=== PATIENT | female | born 1965 | race Caucasian/White ===

== ENCOUNTER 2019-05-11 22:59 | Emergency (ER) | payer OTHER, MEDICARE ==
[2019-05-12 00:36] LABS: EOS # 0.1 (0.04-0.40); EOS % 1.4 % (1.0-5.0); HEMATOCRIT 37.4 % (37.0-47.0); HEMOGLOBIN 11.5 g/dL (12.5-16.0); MEAN CELL VOLUME 86 fl (78-100); MEAN CORPUSCULAR HEMOGLOBIN 27 pg (27-31); MEAN CORPUSCULAR HGB CONC 31 g/dL (33-37); MEAN PLATELET VOLUME 11.1 fl (7.4-10.4); MONO # 0.9 (0.20-0.80); NEU # 4.8 (1.40-6.50); PLATELET COUNT 252 K/mm3 (130-400); RED BLOOD COUNT 4.33 M/mm3 (4.10-5.30); RED CELL DISTRIBUTION WIDTH 13.9 % (11.5-14.5); WHITE BLOOD COUNT 8.8 K/mm3 (4.8-10.8)
[2019-05-12 00:47] LABS: PROTHROMBIN TIME 10.8 SECONDS (9.0-12.0)
[2019-05-12] MEDS ORDERED: ESCITALOPRAM20 MG PO (00:49)
[2019-05-12] MEDS ORDERED: LEVOTHYROXIN0.075 MG PO (00:49)
[2019-05-12] MEDS ORDERED: BUPROPION HCL200 M1 PO (00:50)
[2019-05-12] MEDS ORDERED: FENOFIBRATE MI134 MG PO (00:50)
[2019-05-12] MEDS ORDERED: MULTIVITAMIN1 SGL PO (00:52)
[2019-05-12 00:53] LABS: ALBUMIN 3.6 g/dL (3.5-5.0); CALCIUM 9.2 mg/dL (8.3-10.5); POTASSIUM 3.9 mmol/L (3.5-5.1); TOTAL PROTEIN 6.3 g/dL (6.4-8.3)
[2019-05-12] MEDS ORDERED: VIACTIV PO (00:53)
[2019-05-12] MEDS ORDERED: GOOD NEIGHBOR P1 T32 PO (00:53)
[2019-05-12 00:54] LABS: TOTAL BILIRUBIN 0.1 mg/dL (0.2-1.2)
[2019-05-12] MEDS ORDERED: B COMPLEX #11 TA1 PO (00:54)
[2019-05-12] MEDS ORDERED: FISH OIL1 IU PO (01:09)
[2019-05-12] MEDS ORDERED: PROBIOTIC1 EAC1 PO (01:09)
[2019-05-12] MEDS ORDERED: CRESTOR 10MG10 MG PO (01:10)
[2019-05-12] MEDS ORDERED: PROTONIX TR40 M1 PO (01:10)
[2019-05-12] MEDS ORDERED: MYRBETRIQ50 MG PO (01:10)
[2019-05-12] MEDS ORDERED: HYDROXYZINE HCL25 M1 PO (01:11)
[2019-05-12] MEDS ORDERED: LATUDA40 MG PO (01:11)
[2019-05-12] MEDS ORDERED: LISINOPRIL10 MG PO (01:12)
[2019-05-12] MEDS ORDERED: MAGNESIUM OXIDE PO (01:12)
[2019-05-12] MEDS ORDERED: FLOMAX0.4 MG PO (01:12)
[2019-05-12] MEDS ORDERED: MAGNESIUM OXIDE (01:12)
[2019-05-12] MEDS ORDERED: TRIAMCINOLONE AC0.13 TP (01:13)
[2019-05-12] MEDS ORDERED: LOMAIRA8 MG PO (01:13)
[2019-05-12] MEDS ORDERED: PHENERGAN 25 TA25 MG PO (01:14)
[2019-05-12] MEDS ORDERED: AJOVY225 MG/1.5 SQ (01:14)
[2019-05-12] MEDS ORDERED: METAXALONE800 M2 PO ×2 (01:15)
[2019-05-12] MEDS ORDERED: N-ACETYL-L-CYS600 MG PO (01:15)
[2019-05-12] MEDS ORDERED: ADVIL MIGRAINE200 MG PO (01:16)
[2019-05-12] MEDS ORDERED: BUTALBITAL, ACE1 TA1 PO (01:16)
[2019-05-12] MEDS ORDERED: KETOROLAC10 MG PO (01:16)
[2019-05-12] MEDS ORDERED: TYLENOL EXTRA500 M2 PO (01:17)
[2019-05-12 01:25] VITALS: BP 121/71
== END 2019-05-12 01:28 | disposition home or self-care (01) ==
LOC: ED 22:59
PROVIDERS: Physician Assistant
DX: E11.42 Type 2 diabetes mellitus with diabetic polyneuropathy (principal); K58.9 Irritable bowel syndrome, unspecified; I10 Essential (primary) hypertension; G43.909 Migraine, unspecified, not intractable, without status migrainosus; E03.9 Hypothyroidism, unspecified; F32.9 Major depressive disorder, single episode, unspecified; Z90.49 Acquired absence of other specified parts of digestive tract; Z98.84 Bariatric surgery status; Z88.1 Allergy status to other antibiotic agents
CPT/HCPCS: J1885

== ENCOUNTER 2019-06-06 21:12 | Emergency (ER) | payer OTHER, MEDICARE ==
[~2019-06-06 21:12] MED LIST: ADVIL MIGRAINE200 MG PO; AJOVY225 MG/1.5 SQ; B COMPLEX #11 TA1 PO; BUPROPION HCL200 M1 PO; BUTALBITAL, ACE1 TA1 PO; CRESTOR 10MG10 MG PO; ESCITALOPRAM20 MG PO; FENOFIBRATE MI134 MG PO; FISH OIL1 IU PO; FLOMAX0.4 MG PO; GOOD NEIGHBOR P1 T32 PO; HYDROXYZINE HCL25 M1 PO; KETOROLAC10 MG PO; LATUDA40 MG PO; LEVOTHYROXIN0.075 MG PO; LISINOPRIL10 MG PO; LOMAIRA8 MG PO; MAGNESIUM OXIDE; MAGNESIUM OXIDE PO; METAXALONE800 M2 PO; MULTIVITAMIN1 SGL PO; MYRBETRIQ50 MG PO; N-ACETYL-L-CYS600 MG PO; PHENERGAN 25 TA25 MG PO; PROBIOTIC1 EAC1 PO; PROTONIX TR40 M1 PO; TRIAMCINOLONE AC0.13 TP; TYLENOL EXTRA500 M2 PO; VIACTIV PO
[2019-06-06 21:39] LABS: EOS # 0.1 (0.04-0.40); EOS % 1.6 % (1.0-5.0); HEMATOCRIT 40.3 % (37.0-47.0); HEMOGLOBIN 12.5 g/dL (12.5-16.0); MEAN CELL VOLUME 85 fl (78-100); MEAN CORPUSCULAR HEMOGLOBIN 26 pg (27-31); MEAN CORPUSCULAR HGB CONC 31 g/dL (33-37); MEAN PLATELET VOLUME 11.1 fl (7.4-10.4); MONO # 0.6 (0.20-0.80); NEU # 4.3 (1.40-6.50); PLATELET COUNT 285 K/mm3 (130-400); RED BLOOD COUNT 4.73 M/mm3 (4.10-5.30); RED CELL DISTRIBUTION WIDTH 14.3 % (11.5-14.5); WHITE BLOOD COUNT 8.1 K/mm3 (4.8-10.8)
[2019-06-06 21:50] LABS: ALBUMIN 3.8 g/dL (3.5-5.0)
[2019-06-06 21:51] LABS: POTASSIUM 3.8 mmol/L (3.5-5.1); SODIUM 139 mmol/L (136-145)
[2019-06-06 21:52] LABS: CALCIUM 8.8 mg/dL (8.3-10.5)
[2019-06-06 21:53] LABS: GLUCOSE 81 mg/dL (65-105); TOTAL PROTEIN 6.6 g/dL (6.4-8.3)
[2019-06-06 21:54] LABS: CARBON DIOXIDE 24 mmol/L (22-29)
[2019-06-06 21:55] LABS: TOTAL BILIRUBIN 0.2 mg/dL (0.2-1.2)
[2019-06-06 21:58] LABS: AST-SGOT 18 U/L (5-34)
[2019-06-06 22:00] LABS: ALT/SGPT 23 U/L (0-55)
[2019-06-06 22:07] LABS: TROPONIN-I < 0.03 ng/mL (<0.030)
[2019-06-06 22:12] LABS: PARTIAL THROMBOPLASTIN TIME 22.9 SECONDS (21.0-32.0)
[2019-06-06 22:23] LABS: D-DIMER 0.51 mg/L FEU (0.15-0.50)
[2019-06-07 00:02] VITALS: BP 128/82
== END 2019-06-07 00:02 | disposition home or self-care (01) ==
LOC: ED 21:12
PROVIDERS: Nurse Practitioner
DX: R06.02 Shortness of breath (principal); R07.9 Chest pain, unspecified; E11.9 Type 2 diabetes mellitus without complications; I10 Essential (primary) hypertension; F32.9 Major depressive disorder, single episode, unspecified; E03.9 Hypothyroidism, unspecified; G43.909 Migraine, unspecified, not intractable, without status migrainosus; Z79.4 Long term (current) use of insulin; Z90.49 Acquired absence of other specified parts of digestive tract; Z98.84 Bariatric surgery status
CPT/HCPCS: Q9967

== ENCOUNTER 2019-06-30 19:34 | Emergency (ER) | payer OTHER, MEDICARE ==
[2019-06-30] MEDS ORDERED: SPIRONOLACTONE50 M1 PO (19:49)
[2019-06-30 21:38] VITALS: BP 125/79
== END 2019-06-30 21:38 | disposition home or self-care (01) ==
LOC: ED 19:34
DX: M94.0 Chondrocostal junction syndrome [Tietze] (principal); F32.9 Major depressive disorder, single episode, unspecified; K58.9 Irritable bowel syndrome, unspecified; E03.9 Hypothyroidism, unspecified; G43.909 Migraine, unspecified, not intractable, without status migrainosus; E11.9 Type 2 diabetes mellitus without complications; K21.9 Gastro-esophageal reflux disease without esophagitis; I10 Essential (primary) hypertension; Z90.89 Acquired absence of other organs; Z90.49 Acquired absence of other specified parts of digestive tract
CPT/HCPCS: J1885

== ENCOUNTER 2019-08-12 17:27 | Emergency (ER) | payer OTHER, MEDICARE ==
[~2019-08-12] VITALS: Ht 167.6 cm; Wt 137.7 kg
[~2019-08-12 17:27] MED LIST changes: +SPIRONOLACTONE50 M1 PO
[2019-08-12 18:16] LABS: EOS # 0.2 (0.04-0.40); EOS % 1.5 % (1.0-5.0); HEMATOCRIT 38.6 % (37.0-47.0); HEMOGLOBIN 12.3 g/dL (12.5-16.0); LYMPH# 3.2 (1.50-4.00); MEAN CELL VOLUME 83 fl (78-100); MEAN CORPUSCULAR HEMOGLOBIN 27 pg (27-31); MEAN CORPUSCULAR HGB CONC 32 g/dL (33-37); MEAN PLATELET VOLUME 10.9 fl (7.4-10.4); MONO # 0.9 (0.20-0.80); PLATELET COUNT 253 K/mm3 (130-400); RED BLOOD COUNT 4.64 M/mm3 (4.10-5.30); RED CELL DISTRIBUTION WIDTH 14.6 % (11.5-14.5); WHITE BLOOD COUNT 10.3 K/mm3 (4.8-10.8)
[2019-08-12 18:23] LABS: ALBUMIN 3.6 g/dL (3.5-5.0); POTASSIUM 4.1 mmol/L (3.5-5.1); SODIUM 133 mmol/L (136-145)
[2019-08-12 18:24] LABS: CALCIUM 8.9 mg/dL (8.3-10.5)
[2019-08-12 18:25] LABS: GLUCOSE 98 mg/dL (65-105); TOTAL PROTEIN 6.6 g/dL (6.4-8.3)
[2019-08-12 18:26] LABS: CARBON DIOXIDE 21 mmol/L (22-29)
[2019-08-12 18:27] LABS: TOTAL BILIRUBIN 0.5 mg/dL (0.2-1.2)
[2019-08-12 18:31] LABS: AST-SGOT 142 U/L (5-34)
[2019-08-12 18:32] LABS: ALT/SGPT 78 U/L (0-55)
[2019-08-12 18:38] LABS: TROPONIN-I < 0.03 ng/mL (<0.030)
[2019-08-12] MEDS ORDERED: HYDROXYZINE HCL25 M1 PO (18:56)
[2019-08-12] MEDS ORDERED: ZANTAC150 M1 PO (18:57)
[2019-08-12] MEDS ORDERED: CYMBALTA60 M1 PO (18:58)
[2019-08-12 20:14] VITALS: BP 112/64
== END 2019-08-12 20:15 | disposition home or self-care (01) ==
LOC: ED 17:27
PROVIDERS: Family Medicine
DX: R07.89 Other chest pain (principal); E11.9 Type 2 diabetes mellitus without complications; K21.9 Gastro-esophageal reflux disease without esophagitis; F31.9 Bipolar disorder, unspecified; E05.00 Thyrotoxicosis with diffuse goiter without thyrotoxic crisis or storm; K58.9 Irritable bowel syndrome, unspecified; Z90.49 Acquired absence of other specified parts of digestive tract; Z98.84 Bariatric surgery status; Z98.890 Other specified postprocedural states

== ENCOUNTER 2019-08-19 22:34 | Emergency (ER) | payer OTHER, MEDICARE ==
[~2019-08-19 22:34] MED LIST changes: +CYMBALTA60 M1 PO; +ZANTAC150 M1 PO
[2019-08-19] MEDS ORDERED: DOCUSATE SODIUM1 TA3 PO (22:45)
[2019-08-20 01:41] VITALS: BP 112/75
== END 2019-08-20 01:40 | disposition home or self-care (01) ==
LOC: ED 22:34
DX: G44.209 Tension-type headache, unspecified, not intractable (principal); I10 Essential (primary) hypertension; F41.9 Anxiety disorder, unspecified; F31.9 Bipolar disorder, unspecified; K58.9 Irritable bowel syndrome, unspecified; Z98.84 Bariatric surgery status; Z90.49 Acquired absence of other specified parts of digestive tract
CPT/HCPCS: J1885

== ENCOUNTER 2019-08-21 19:03 | Emergency (ER) | payer OTHER, MEDICARE ==
[~2019-08-21 19:03] MED LIST changes: +DOCUSATE SODIUM1 TA3 PO
[2019-08-21 22:21] VITALS: BP 126/82
== END 2019-08-21 22:22 | disposition home or self-care (01) ==
LOC: ED 19:03
DX: K58.9 Irritable bowel syndrome, unspecified (principal); R51 Headache; F25.0 Schizoaffective disorder, bipolar type; F41.9 Anxiety disorder, unspecified; E03.9 Hypothyroidism, unspecified; Z90.49 Acquired absence of other specified parts of digestive tract; Z98.890 Other specified postprocedural states; Z98.84 Bariatric surgery status

== ENCOUNTER 2019-09-10 14:43 | Emergency (ER) | payer OTHER, MEDICARE ==
[~2019-09-10] VITALS: Ht 167.6 cm; Wt 136.4 kg
[~2019-09-10 14:43] MED LIST changes: -LISINOPRIL10 MG PO; +ZESTRIL20 M1 PO
[2019-09-10] MEDS ORDERED: PROTONIX TR40 M1 PO (15:33)
[2019-09-10] MEDS ORDERED: SAPHRIS10 MG PO (15:34)
[2019-09-10] MEDS ORDERED: COLACE100 M1 PO (15:34)
[2019-09-10] MEDS ORDERED: GAVISCON 80 MG-1 CT1 PO (15:35)
[2019-09-10] MEDS ORDERED: ALDACTONE50 M1 PO (15:35)
[2019-09-10] MEDS ORDERED: ASPIRIN E.C. 8181 MG PO (15:36)
[2019-09-10] MEDS ORDERED: FENOFIBRATE MI134 MG PO (15:38)
[2019-09-10] MEDS ORDERED: TURMERIC 500 M1 EACH PO (15:40)
[2019-09-10] MEDS ORDERED: B COMPLEX1 EACH PO (15:40)
[2019-09-10 15:42] LABS: BASO # 0.1 (0.02-0.10); EOS # 0.2 (0.04-0.40); EOS % 2.1 % (1.0-5.0); HEMOGLOBIN 13.7 g/dL (12.5-16.0); LYMPH# 3.3 (1.50-4.00); MEAN CELL VOLUME 84 fl (78-100); MEAN CORPUSCULAR HEMOGLOBIN 27 pg (27-31); MEAN CORPUSCULAR HGB CONC 32 g/dL (33-37); MONO # 1.1 (0.20-0.80); NEU # 6.3 (1.40-6.50); PLATELET COUNT 248 K/mm3 (130-400); RED BLOOD COUNT 5.12 M/mm3 (4.10-5.30); RED CELL DISTRIBUTION WIDTH 14.4 % (11.5-14.5)
[2019-09-10 15:47] LABS: ALBUMIN 3.9 g/dL (3.5-5.0); POTASSIUM 4.2 mmol/L (3.5-5.1); SODIUM 138 mmol/L (136-145)
[2019-09-10 15:48] LABS: CALCIUM 8.9 mg/dL (8.3-10.5)
[2019-09-10 15:50] LABS: GLUCOSE 110 mg/dL (65-105); TOTAL PROTEIN 7.2 g/dL (6.4-8.3)
[2019-09-10 15:51] LABS: CARBON DIOXIDE 24 mmol/L (22-29); TOTAL BILIRUBIN 0.2 mg/dL (0.2-1.2)
[2019-09-10 15:55] LABS: AST-SGOT 19 U/L (5-34)
[2019-09-10 15:56] LABS: ALT/SGPT 30 U/L (0-55)
[2019-09-10 15:57] LABS: ACETAMINOPHEN 2 ug/mL; ALCOHOL IN-HOUSE < 10 mg/dL (<10)
[2019-09-10 17:26] VITALS: BP 139/82
[2019-09-10 17:38] LABS: URINE APPEARANCE HAZY; URINE BILIRUBIN NEGATIVE (NEGATIVE); URINE BLOOD NEGATIVE (NEGATIVE); URINE COLOR YELLOW; URINE GLUCOSE NEGATIVE (NEGATIVE); URINE KETONE NEGATIVE (NEGATIVE); URINE LEUKOCYTE ESTERASE TRACE (NEGATIVE); URINE NITRATE NEGATIVE (NEGATIVE); URINE PROTEIN(semi-quant) TRACE mg/dL (NEGATIVE); URINE UROBILINOGEN NORMAL (NORMAL)
== END 2019-09-10 17:27 | disposition home or self-care (01) ==
LOC: ED 14:43
PROVIDERS: Family Medicine
DX: F32.9 Major depressive disorder, single episode, unspecified (principal); F20.9 Schizophrenia, unspecified; K58.9 Irritable bowel syndrome, unspecified; E03.9 Hypothyroidism, unspecified; Z90.49 Acquired absence of other specified parts of digestive tract; Z90.89 Acquired absence of other organs; Z98.84 Bariatric surgery status

== ENCOUNTER 2019-09-10 21:17 | Emergency (ER) | payer OTHER, MEDICARE ==
[~2019-09-10] VITALS: Ht 167.6 cm; Wt 136.4 kg
[~2019-09-10 21:17] MED LIST changes: +ALDACTONE50 M1 PO; +ASPIRIN E.C. 8181 MG PO; +B COMPLEX1 EACH PO; +COLACE100 M1 PO; +GAVISCON 80 MG-1 CT1 PO; +SAPHRIS10 MG PO; +TURMERIC 500 M1 EACH PO
[2019-09-10 23:40] VITALS: BP 133/84
== END 2019-09-10 23:40 | disposition home or self-care (01) ==
LOC: ED 21:17
DX: F32.9 Major depressive disorder, single episode, unspecified (principal); G43.909 Migraine, unspecified, not intractable, without status migrainosus; E03.9 Hypothyroidism, unspecified; F25.0 Schizoaffective disorder, bipolar type; K58.9 Irritable bowel syndrome, unspecified; E28.2 Polycystic ovarian syndrome; Z90.49 Acquired absence of other specified parts of digestive tract; Z98.84 Bariatric surgery status; Z79.82 Long term (current) use of aspirin
CPT/HCPCS: J1100

== ENCOUNTER 2019-09-16 22:44 | Emergency (ER) | payer MEDICARE, OTHER ==
[~2019-09-16] VITALS: Ht 167.6 cm; Wt 136.4 kg
[2019-09-16 23:06] VITALS: BP 147/86
== END 2019-09-17 00:22 | disposition home or self-care (01) ==
LOC: ED 22:44
DX: G43.909 Migraine, unspecified, not intractable, without status migrainosus (principal); I10 Essential (primary) hypertension; E07.9 Disorder of thyroid, unspecified; F31.9 Bipolar disorder, unspecified; F41.9 Anxiety disorder, unspecified; G47.00 Insomnia, unspecified; K58.9 Irritable bowel syndrome, unspecified; Z79.82 Long term (current) use of aspirin
CPT/HCPCS: J1200; J1885

== ENCOUNTER 2019-09-17 03:04 | Emergency (ER) | payer MEDICARE, OTHER ==
[~2019-09-17] VITALS: Ht 167.6 cm; Wt 136.4 kg
[2019-09-17 03:15] VITALS: BP 124/68
== END 2019-09-17 04:05 | disposition home or self-care (01) ==
LOC: ED 03:04
DX: G43.909 Migraine, unspecified, not intractable, without status migrainosus (principal); I10 Essential (primary) hypertension; F31.9 Bipolar disorder, unspecified; F41.9 Anxiety disorder, unspecified; E07.9 Disorder of thyroid, unspecified; Z79.82 Long term (current) use of aspirin

== ENCOUNTER 2019-09-18 17:58 | Emergency (ER) | payer OTHER, MEDICARE ==
[~2019-09-18] VITALS: Ht 167.6 cm; Wt 136.4 kg
[2019-09-18 20:00] LABS: BASO # 0.1 (0.02-0.10); EOS # 0.2 (0.04-0.40); EOS % 1.3 % (1.0-5.0); HEMATOCRIT 46.1 % (37.0-47.0); HEMOGLOBIN 14.7 g/dL (12.5-16.0); LYMPH# 3.7 (1.50-4.00); MEAN CELL VOLUME 83 fl (78-100); MEAN CORPUSCULAR HEMOGLOBIN 26 pg (27-31); MEAN CORPUSCULAR HGB CONC 32 g/dL (33-37); MEAN PLATELET VOLUME 10.9 fl (7.4-10.4); NEU # 6.9 (1.40-6.50); PLATELET COUNT 341 K/mm3 (130-400); RED BLOOD COUNT 5.57 M/mm3 (4.10-5.30); RED CELL DISTRIBUTION WIDTH 14.5 % (11.5-14.5); WHITE BLOOD COUNT 11.7 K/mm3 (4.8-10.8)
[2019-09-18 20:55] LABS: ERYTHROCYTE SEDIMENTATION RATE 10 mm/hr (0-30)
[2019-09-18 21:30] VITALS: BP 129/66
== END 2019-09-18 21:30 | disposition home or self-care (01) ==
LOC: ED 17:58
PROVIDERS: Family Medicine
DX: F41.9 Anxiety disorder, unspecified (principal); F31.9 Bipolar disorder, unspecified; G43.909 Migraine, unspecified, not intractable, without status migrainosus; Z98.890 Other specified postprocedural states

== ENCOUNTER 2019-09-23 23:27 | Emergency (ER) | payer OTHER, MEDICARE ==
[2019-09-24 00:13] LABS: BASO # 0.1 (0.02-0.10); EOS # 0.1 (0.04-0.40); HEMATOCRIT 41.1 % (37.0-47.0); HEMOGLOBIN 13.1 g/dL (12.5-16.0); LYMPH# 3.1 (1.50-4.00); MEAN CELL VOLUME 83 fl (78-100); MEAN CORPUSCULAR HEMOGLOBIN 27 pg (27-31); MEAN CORPUSCULAR HGB CONC 32 g/dL (33-37); MEAN PLATELET VOLUME 11.1 fl (7.4-10.4); NEU # 8.9 (1.40-6.50); PLATELET COUNT 310 K/mm3 (130-400); RED BLOOD COUNT 4.93 M/mm3 (4.10-5.30); RED CELL DISTRIBUTION WIDTH 14.5 % (11.5-14.5); WHITE BLOOD COUNT 13.2 K/mm3 (4.8-10.8)
[2019-09-24 00:20] LABS: ALBUMIN 3.7 g/dL (3.5-5.0); POTASSIUM 3.9 mmol/L (3.5-5.1)
[2019-09-24 00:21] LABS: CALCIUM 9.7 mg/dL (8.3-10.5)
[2019-09-24 00:23] LABS: TOTAL PROTEIN 6.6 g/dL (6.4-8.3)
[2019-09-24 00:31] LABS: TOTAL BILIRUBIN 0.1 mg/dL (0.2-1.2)
[2019-09-24 03:13] VITALS: BP 110/78
== END 2019-09-24 03:14 | disposition home or self-care (01) ==
LOC: ED 23:27
PROVIDERS: Family Medicine
DX: R10.9 Unspecified abdominal pain (principal); E11.9 Type 2 diabetes mellitus without complications; K58.9 Irritable bowel syndrome, unspecified; E28.2 Polycystic ovarian syndrome; K21.9 Gastro-esophageal reflux disease without esophagitis; Z90.49 Acquired absence of other specified parts of digestive tract; Z98.84 Bariatric surgery status; Z79.82 Long term (current) use of aspirin
CPT/HCPCS: J1885; J3010; J3490

== ENCOUNTER 2019-09-24 03:27 | Emergency (ER) | payer OTHER, MEDICARE ==
[2019-09-24 07:10] VITALS: BP 108/64
== END 2019-09-24 07:16 | disposition home or self-care (01) ==
LOC: ED 03:27
DX: R51 Headache (principal); E11.9 Type 2 diabetes mellitus without complications; K58.9 Irritable bowel syndrome, unspecified; Z90.49 Acquired absence of other specified parts of digestive tract; Z98.84 Bariatric surgery status
CPT/HCPCS: J2360

== ENCOUNTER 2019-09-30 22:15 | Emergency (ER) | payer OTHER, MEDICARE ==
[~2019-09-30] VITALS: Ht 167.6 cm; Wt 144.1 kg
[2019-09-30] MEDS ORDERED: KETOROLAC10 MG PO (22:37)
[2019-10-01 03:01] VITALS: BP 120/82
[2019-10-01] MEDS ORDERED: MACROBID 100 M100 MG PO (11:59)
== END 2019-10-01 03:07 | disposition home or self-care (01) ==
LOC: ED 22:15
DX: R51 Headache (principal); G47.30 Sleep apnea, unspecified; E28.2 Polycystic ovarian syndrome; Z90.49 Acquired absence of other specified parts of digestive tract; Z98.84 Bariatric surgery status; Z79.82 Long term (current) use of aspirin
CPT/HCPCS: J1885; J2360

== ENCOUNTER 2019-10-01 06:05 | Emergency (ER) | payer OTHER, MEDICARE ==
[~2019-10-01] VITALS: Ht 170.2 cm; Wt 113.6 kg
[2019-10-01 08:09] LABS: BASO # 0.1 (0.02-0.10); EOS # 0.2 (0.04-0.40); EOS % 1.2 % (1.0-5.0); HEMATOCRIT 39.8 % (37.0-47.0); LYMPH# 2.7 (1.50-4.00); MEAN CELL VOLUME 84 fl (78-100); MEAN CORPUSCULAR HEMOGLOBIN 27 pg (27-31); MEAN CORPUSCULAR HGB CONC 33 g/dL (33-37); MONO # 1.1 (0.20-0.80); PLATELET COUNT 314 K/mm3 (130-400); RED BLOOD COUNT 4.74 M/mm3 (4.10-5.30); RED CELL DISTRIBUTION WIDTH 14.5 % (11.5-14.5); WHITE BLOOD COUNT 14.1 K/mm3 (4.8-10.8)
[2019-10-01 08:12] LABS: POTASSIUM 4.7 mmol/L (3.5-5.1)
[2019-10-01 08:13] LABS: CALCIUM 9.7 mg/dL (8.3-10.5)
[2019-10-01 08:16] LABS: TOTAL BILIRUBIN 0.3 mg/dL (0.2-1.2)
[2019-10-01 08:20] LABS: MEAN PLATELET VOLUME 12.1 fl (7.4-10.4)
[2019-10-01 08:52] LABS: URINE APPEARANCE HAZY; URINE BILIRUBIN NEGATIVE (NEGATIVE); URINE BLOOD TRACE (NEGATIVE); URINE COLOR DK YELLOW; URINE GLUCOSE NEGATIVE (NEGATIVE); URINE KETONE NEGATIVE (NEGATIVE); URINE LEUKOCYTE ESTERASE 1+ (NEGATIVE); URINE NITRATE NEGATIVE (NEGATIVE); URINE PROTEIN(semi-quant) TRACE mg/dL (NEGATIVE); URINE UROBILINOGEN NORMAL (NORMAL)
[2019-10-01 08:53] LABS: URINE MUCUS PRESENT (NOT PRESENT)
[2019-10-01] MEDS ORDERED: MACROBID 100 M100 MG PO (11:59)
[2019-10-01 12:06] VITALS: BP 96/54
== END 2019-10-01 12:13 | disposition home or self-care (01) ==
LOC: ED 06:05
PROVIDERS: Family Medicine
DX: N39.0 Urinary tract infection, site not specified (principal); M54.9 Dorsalgia, unspecified; E11.9 Type 2 diabetes mellitus without complications; K58.9 Irritable bowel syndrome, unspecified; Z90.49 Acquired absence of other specified parts of digestive tract; Z98.84 Bariatric surgery status; Z79.82 Long term (current) use of aspirin
CPT/HCPCS: A4216; J0696; J2765; J3490; J7030

== ENCOUNTER 2019-10-09 14:38 | Emergency (ER) | payer OTHER, MEDICARE ==
[~2019-10-09] VITALS: Ht 167.6 cm; Wt 136.4 kg
[~2019-10-09 14:38] MED LIST changes: +MACROBID 100 M100 MG PO
[2019-10-09 14:53] VITALS: BP 125/80
[2019-10-09 15:52] LABS: EOS # 0.1 (0.04-0.40); HEMATOCRIT 41.8 % (37.0-47.0); HEMOGLOBIN 13.1 g/dL (12.5-16.0); LYMPH# 2.3 (1.50-4.00); MEAN CELL VOLUME 86 fl (78-100); MEAN CORPUSCULAR HEMOGLOBIN 27 pg (27-31); MEAN CORPUSCULAR HGB CONC 31 g/dL (33-37); MEAN PLATELET VOLUME 11.1 fl (7.4-10.4); MONO # 0.8 (0.20-0.80); NEU # 4.7 (1.40-6.50); PLATELET COUNT 267 K/mm3 (130-400); RED BLOOD COUNT 4.85 M/mm3 (4.10-5.30); RED CELL DISTRIBUTION WIDTH 15.1 % (11.5-14.5); WHITE BLOOD COUNT 7.9 K/mm3 (4.8-10.8)
== END 2019-10-09 19:14 | disposition home or self-care (01) ==
LOC: ED 14:38
PROVIDERS: Family Medicine
DX: M79.10 Myalgia, unspecified site (principal); R51 Headache; R53.81 Other malaise; K21.9 Gastro-esophageal reflux disease without esophagitis; K58.9 Irritable bowel syndrome, unspecified; Z79.82 Long term (current) use of aspirin

== ENCOUNTER 2019-11-09 13:13 | Emergency (ER) | payer OTHER, MEDICARE ==
[~2019-11-09] VITALS: Ht 167.6 cm; Wt 140.6 kg
[2019-11-09] MEDS ORDERED: CEFDINIR300 MG PO (14:58)
[2019-11-09 15:33] VITALS: BP 134/81
== END 2019-11-09 15:34 | disposition home or self-care (01) ==
LOC: ED 13:13
DX: R51 Headache (principal); F31.9 Bipolar disorder, unspecified; E11.9 Type 2 diabetes mellitus without complications; E78.5 Hyperlipidemia, unspecified; K21.9 Gastro-esophageal reflux disease without esophagitis; E03.9 Hypothyroidism, unspecified; F25.9 Schizoaffective disorder, unspecified; Z79.82 Long term (current) use of aspirin; Z88.6 Allergy status to analgesic agent
CPT/HCPCS: J1200; J1885

== ENCOUNTER 2020-08-02 19:47 | Emergency (ER) | payer OTHER, MEDICARE ==
[~2020-08-02 19:47] MED LIST changes: +CEFDINIR300 MG PO
== END 2020-08-02 20:39 | disposition left against medical advice (07) ==
LOC: ED 19:47
DX: R69 Illness, unspecified (principal); Z53.21 Procedure and treatment not carried out due to patient leaving prior to being seen by health care provider